=== PATIENT | male | born 1980 | race Caucasian/White ===

== ENCOUNTER 2017-02-11 04:20 | Emergency (ER) | payer OTHER ==
[~2017-02-11] VITALS: Ht 175.3 cm; Wt 84.1 kg
[2017-02-11 13:39] VITALS: BP 172/115
--- NOTE | 2017-02-12 12:41 | NUR ---
Late entry for 02-11-17. AOD at [facility] contacted and they do not have an IP bed, however they stated it would be best for pt to be treated by the AL as an IP and then referred to the AL Rehab, because they would treat him in an IP Rehab, and that they did have a bed for his Rehab as he was requesting. [employer] at [facility] did have a bed but advised that pt would need to be transferred to their ED. Nimisha w/ [facility], called back and stated that [facility], which is closer, did have an ICU bed and would accept pt w/ provider/provider call and that Dr Mi would be calling, and they would like nurse/nurse report called to [phone]. WICHO Moon and nursing staff are notified. Nimisha states that pt will be able to return to [place] for his alcohol rehab as an IP after he is released from IP detox at [facility].
== END 2017-02-11 14:06 | disposition short-term general hospital (02) ==
LOC: ED 04:20
DX: F10.20 Alcohol dependence, uncomplicated (principal); Y90.6 Blood alcohol level of 120-199 mg/100 ml; R07.89 Other chest pain; R06.02 Shortness of breath; R07.1 Chest pain on breathing; R05 Cough; R53.1 Weakness; R42 Dizziness and giddiness
CPT/HCPCS: J2060; J3411; J7030